=== PATIENT | male | born 1955 | race Caucasian/White ===

== ENCOUNTER → 2023-11-02 | Outpatient (CLI) | payer MEDICARE ==
--- NOTE | 2023-11-02 08:43 | CT ---
EXAMINATION TYPE: CT brain wo con DATE OF EXAM: 11/02/2023 COMPARISON: None INDICATION: Headache that hasn't resolved, visual disturbances DLP: 1212 mGycm, Automated exposure control for dose reduction was used. CONTRAST: None CT of the brain is performed utilizing 3 mm thick sections through the posterior fossa and 3 mm thick sections through the remaining calvarium. Study is performed within 24 hours of arrival to the hosp [place]. No abnormal hyperdensity is present to suggest an acute intracranial hemorrhage. No mass lesion is evident. No acute infarcts are evident. Ventricles and sulci are appropriate for the patient age. Paranasal sinuses and mastoid air cells within the [id number] are clear. IMPRESSION: 1. No acute intracranial process. Follow-up MRI can be performed as clinically indicated.
== END | disposition home or self-care (01) ==
LOC: RADCTMAIN 06:59
PROVIDERS: ATTEND Family Medicine
DX: H53.9 Unspecified visual disturbance (principal); R51.9 Headache, unspecified
CPT/HCPCS: 70450

== ENCOUNTER 2024-07-08 15:29 | Observation (INO) | payer MEDICARE ==
--- NOTE | 2024-07-08 15:56 | ED ---
General Adult HPI - General Chief complaint: Recheck/Abnormal Lab/Rx Stated complaint: chest pain Time Seen by Provider: 07/08/24 15:39 Source: patient, EMS, RN notes reviewed Mode of arrival: EMS Limitations: no limitations - History of Present Illness Initial comments: 68-year-old male presents emergency department via EMS chief complaint of dizziness, hypertension and mild chest comfort. Patient states started not feeling well he states he had a headache and when she checked his blood pressure was elevated he went over the fire valencia called his chief in which he said at that point he should come to the emergency department. Patient does have a history of [place] multiple stents hypertension hyperlipidemia no history of diabetes. Patient states he does not feel well. He states is also very stressed because his recently . - Related Data Allergies Allergy/AdvReac Type Severity Reaction Status Date / Time Sulfa (Sulfonamide AdvReac Unknown Verified 07/08/24 15:41 Antibiotics) Review of Systems ROS Statement: Those systems with pertinent positive or pertinent negative responses have been documented in the HPI. ROS Other: All systems not noted in ROS Statement are negative. Past Medical History Past Medical History: Hypertension, Myocardial Infarction ([place]) History of Any Multi-Drug Resistant Organisms: None Reported Past Surgical History: Orthopedic Surgery Additional Past Surgical History / Comment(s): [place] with stent placement 2011 Past Psychological History: No Psychological Hx Reported Smoking Status: Former smoker Past Alcohol Use History: None Reported Past Drug Use History: None Reported General Exam Limitations: no limitations General appearance: alert, in no apparent distress Head exam: Present: atraumatic, normocephalic, normal inspection Eye exam: Present: normal appearance, PERRL, EOMI. Absent: scleral icterus, conjunctival injection, periorbital swelling ENT exam: Present: normal exam, normal oropharynx, mucous membranes moist Neck exam: Present: normal inspection, full ROM. Absent: tenderness, meningismus, lymphadenopathy Respiratory exam: Present: normal lung sounds bilaterally. Absent: respiratory distress, wheezes, rales, rhonchi, stridor Cardiovascular Exam: Present: regular rate, normal rhythm, normal heart sounds. Absent: systolic murmur, diastolic murmur, rubs, gallop, clicks Course Vital Signs 07/08/24 15:36 Temperature 98.1 F Pulse Rate 66 Respiratory 18 Rate Blood Pressure 151/76 O2 Sat by Pulse 97 Oximetry EKG Findings - EKG Comments: EKG Findings:: 1515: 39 sinus bradycardia with a rate of 57 OK 179 QRS 138 QT/QTc 449/442 right bundle noted - EKG Results: EKG: interpreted by [facility] Medical Decision Making - Medical Decision Making Was pt. sent in by a medical professional or institution (, KEN, MEDICAL SUPERINTENDENT, urgent care, hospital, or alf...) When possible be specific @ -No Did you speak to anyone other than the patient for history (EMS, parent, family, police, friend...)? What history was obtained from this source @ -No Did you review nursing and triage notes (agree or disagree)? Why? @ -I reviewed and agree with nursing and triage notes Were old charts reviewed (outside hosp., previous admission, EMS record, old EKG, old radiological studies, urgent care reports/EKG's, alf records)? Report findings @ -No old charts were reviewed Differential Diagnosis (chest pain, altered mental status, abdominal pain women, abdominal pain men, vaginal bleeding, weakness, fever, dyspnea, syncope, headache, dizziness, GI bleed, back pain, seizure, CVA, palpatations, mental health, musculoskeletal)? @ -Differential Chest Pain: Stable Angina, Unstable Angina, STEMI, NSTEMI Aortic Dissection, Pneumothorax, Musculoskeletal, Esophageal Spasm GERD, Cholecystitis, Pancreatitis, Zoster, this is not meant to be an all-inclusive list. EKG interpreted by me (3pts min.). @ -As above X-rays interpreted by me (1pt min.). @ -Chest x-ray shows no acute cardiopulmonary process CT interpreted by me (1pt min.). @ -None done U/S interpreted by me (1pt. min.). @ -None done What testing was considered but not performed or refused? (CT, X-rays, U/S, labs)? Why? @ -None What meds were considered but not given or refused? Why? @ -None Did you discuss the management of the patient with other professionals (professionals i.e. , KEN, MEDICAL SUPERINTENDENT, lab, RT, psych nurse, hospital social worker, ski guide, teacher, civil preparedness training officer, case finishing machine adjuster)? Give summary @ -Dr. Duke for admission Was smoking cessation discussed for >3mins.? @ -No Was critical care preformed (if so, how long)? @ -No Were there social determinants of health that impacted care today? How? (Homelessness, low income, unemployed, alcoholism, drug addiction, transportation, low edu. Level, literacy, decrease access to med. care, assisted, rehab)? @ -No Was there de-escalation of care discussed even if they declined (Discuss DNR or withdrawal of care, Hospice)? DNR status @ -No What co-morbidities impacted this encounter? (DM, HTN, Smoking, COPD, CAD, Cancer, CVA, ARF, Chemo, Hep., AIDS, mental health diagnosis, sleep apnea, morbid obesity)? @ -CAD hypertension Was patient admitted / discharged? Hospital course, mention meds given and ro kashia, prescriptions, significant lab abnormalities, going to OR and other pertinent info. @ -[Admitted to observation for chest pain rule out initial troponin is negative patient has multiple risk factors mild headache chest pain and dizziness. Patient admitted with repeat cardiac enzymes Undiagnosed new problem with uncertain prognosis? @ -No Drug Therapy requiring intensive monitoring for toxicity (Heparin, Nitro, Insulin, Cardizem)? @ -No Were any procedures done? @ -No Diagnosis/symptom? @ -Chest pain Acute, or Chronic, or Acute on Chronic? @ -Acute Uncomplicated (without systemic symptoms) or Complicated (systemic symptoms)? @ -Complicated Side effects of treatment? @ -No Exacerbation, Progression, or Severe Exacerbation? @ -No Poses a threat to life or bodily function? How? (Chest pain, [place], [place], pneumonia, PE, COPD, DKA, ARF, appy, cholecystitis, CVA, Diverticulitis, Homicidal, Nina cidal, threat to staff... and all critical care pts) @ -Yes possible ACS risk the cardiac function - Lab Data Result diagrams: 07/08/24 15:49 07/08/24 15:49 Lab Results 07/08/24 07/08/24 07/08/24 Range/Units 15:49 15:49 15:49 WBC 8.0 (3.8-10.6) k/uL RBC 4.97 (4.30-5.90) m/uL Hgb 14.9 (13.0-17.5) gm/dL Hct 44.7 (39.0-53.0) % MCV 89.9 (80.0-100.0) fL MCH 30.1 (25.0-35.0) pg MCHC 33.5 (31.0-37.0) g/dL RDW 13.0 (11.5-15.5) % Plt Count 320 (150-450) k/uL MPV 7.4 Neutrophils % 55 % Lymphocytes % 33 % Monocytes % 7 % Eosinophils % 2 % Basophils % 1 % Neutrophils # 4.4 (1.3-7.7) k/uL Lymphocytes # 2.7 (1.0-4.8) k/uL Monocytes # 0.5 (0-1.0) k/uL Eosinophils # 0.2 (0-0.7) k/uL Basophils # 0.1 (0-0.2) k/uL PT 10.8 (10.0-12.5) sec INR 1.0 (<1.2) APTT 22.2 (22.0-30.0) sec Sodium 137 (137-145) mmol/L Potassium 3.8 (3.5-5.1) mmol/L Chloride 98 (98-107) mmol/L Carbon Dioxide 31 H (22-30) mmol/L Anion Gap 8 mmol/L BUN 12 (9-20) mg/dL Creatinine 0.95 (0.66-1.25) mg/dL Est GFR (CKD-EPI)AfAm >90 (>60 ml/min/1.73 sqM) Est GFR (CKD-EPI)NonAf 84 (>60 ml/min/1.73 sqM) Glucose 109 H (74-99) mg/dL Calcium 9.6 (8.4-10.2) mg/dL Magnesium 1.8 (1.6-2.3) mg/dL Total Bilirubin 0.4 (0.2-1.3) mg/dL AST 24 (17-59) U/L ALT 30 (4-49) U/L Alkaline Phosphatase 123 (38-126) U/L Troponin I (0.000-0.034) ng/mL Total Protein 7.0 (6.3-8.2) g/dL Albumin 4.2 (3.5-5.0) g/dL //24 Range/Units 15:49 WBC (3.8-10.6) k/uL RBC (4.30-5.90) m/uL Hgb (13.0-17.5) gm/dL Hct (39.0-53.0) % MCV (80.0-100.0) fL MCH (25.0-35.0) pg MCHC (31.0-37.0) g/dL RDW (11.5-15.5) % Plt Count (150-450) k/uL MPV Neutrophils % % Lymphocytes % % Monocytes % % Eosinophils % % Basophils % % Neutrophils # (1.3-7.7) k/uL Lymphocytes # (1.0-4.8) k/uL Monocytes # (0-1.0) k/uL Eosinophils # (0-0.7) k/uL Basophils # (0-0.2) k/uL PT (10.0-12.5) sec INR (<1.2) APTT (22.0-30.0) sec Sodium (137-145) mmol/L Potassium (3.5-5.1) mmol/L Chloride (98-107) mmol/L Carbon Dioxide (22-30) mmol/L Anion Gap mmol/L BUN (9-20) mg/dL Creatinine (0.66-1.25) mg/dL Est GFR (CKD-EPI)AfAm (>60 ml/min/1.73 sqM) Est GFR (CKD-EPI)NonAf (>60 ml/min/1.73 sqM) Glucose (74-99) mg/dL Calcium (8.4-10.2) mg/dL Magnesium (1.6-2.3) mg/dL Total Bilirubin (0.2-1.3) mg/dL AST (17-59) U/L ALT (4-49) U/L Alkaline Phosphatase (38-126) U/L Troponin I <0.012 (0.000-0.034) ng/mL Total Protein (6.3-8.2) g/dL Albumin (3.5-5.0) g/dL Disposition Clinical Impression: Chest pain Disposition: ADMITTED IP TO THIS HOSP Condition: Fair Referrals: Pio Ang MD [Primary Care Provider] - 1-2 days Time of Disposition: 17:04
[2024-07-08] MEDS: KETOROLAC 15 MG/ML 1 ML VIAL IVP STA (16:16)
[2024-07-08] MEDS: SODIUM CHLORIDE 0.9% 500 ML 500 ML IV ONE (16:16)
[2024-07-08 16:20] LABS: Basophils # (A) 0.1 k/uL (0-0.2); Basophils % (A) 1 %; Eosinophils # (A) 0.2 k/uL (0-0.7); Eosinophils % (A) 2 %; HCT 44.7 % (39.0-53.0); HGB 14.9 gm/dL (13.0-17.5); Lymphocytes # (A) 2.7 k/uL (1.0-4.8); Lymphocytes % (A) 33 %; MCH 30.1 pg (25.0-35.0); MCHC 33.5 g/dL (31.0-37.0); MCV 89.9 fL (80.0-100.0); Mean Platelet Volume 7.4; Monocytes # (A) 0.5 k/uL (0-1.0); Monocytes % (A) 7 %; Neutrophils # (A) 4.4 k/uL (1.3-7.7); Neutrophils % (A) 55 %; Platelet Count 320 k/uL (150-450); RBC 4.97 m/uL (4.30-5.90)
[2024-07-08] MEDS: ONDANSETRON 4 MG/2 ML VIAL IVP STA (16:20)
[2024-07-08 16:27] LABS: ALT 30 U/L (4-49); AST 24 U/L (17-59); African American GFR (CKD) >90 (>60 ml/min/1.73 sqM); Albumin 4.2 g/dL (3.5-5.0); Alkaline Phosphatase 123 U/L (38-126); Anion Gap 8 mmol/L; Blood Urea Nitrogen 12 mg/dL (9-20); Calcium 9.6 mg/dL (8.4-10.2); Carbon Dioxide 31 mmol/L (22-30); Chloride 98 mmol/L (98-107); Glucose 109 mg/dL (74-99); Magnesium 1.8 mg/dL (1.6-2.3); Non-African American GFR(CKD) 84 (>60 ml/min/1.73 sqM); Potassium 3.8 mmol/L (3.5-5.1); Sodium 137 mmol/L (137-145); Total Bilirubin 0.4 mg/dL (0.2-1.3)
[2024-07-08 16:35] LABS: Partial Thromboplastin Time 22.2 sec (22.0-30.0); Prothrombin Time 10.8 sec (10.0-12.5)
--- NOTE | 2024-07-08 16:37 | XR ---
EXAMINATION TYPE: XR chest 2V DATE OF EXAM: 07/08/2024 4:28 PM COMPARISON: None. CLINICAL INDICATION: Male, 68 years old with history of Chest Pain; [facility] TECHNIQUE: XR chest 2V Frontal and lateral views of the chest. FINDINGS: Lungs/Pleura: There is no evidence of pleural effusion, focal consolidation, or pneumothorax. Pulmonary vascularity: Unremarkable. Heart/mediastinum: Cardiomediastinal silhouette is unremarkable. Musculoskeletal: No acute osseous pathology. Other findings: None IMPRESSION: No acute cardiopulmonary disease/process. [facility], , 07/08/2024 4:35 PM
[2024-07-08] MEDS ORDERED: NITROGLYCERIN SL TABS 0.4 MG TAB SUBLINGUAL PRN (17:04)
[2024-07-08] MEDS: METOPROLOL TARTRATE 50 MG TAB PO SCH (21:00)
[2024-07-08] MEDS: ACETAMINOPHEN TAB 325 MG TAB PO PRN (21:00)
[2024-07-08] MEDS: ATORVASTATIN 40 MG TAB PO SCH (21:00)
[2024-07-08] MEDS: lisinopriL 20 MG TAB PO SCH (21:00)
[2024-07-09] MEDS: PANTOPRAZOLE 40 MG TABLET PO SCH (06:23)
[2024-07-09 07:57] VITALS: BP 122/71; PULSE 60; RESP 16; TEMP 97.8
[2024-07-09] MEDS: ASPIRIN 325 MG TAB PO SCH (09:25)
[2024-07-09] MEDS: METOPROLOL TARTRATE 25 MG TAB PO SCH (09:25)
[2024-07-09 09:28] LABS: Chol/HDL Ratio 4.11 Ratio; LDL Cholesterol,Calculated 62.7 mg/dL (0.0-131.0)
--- NOTE | 2024-07-09 10:07 | CONS ---
CONSULTATION CHIEF COMPLAINT: Headache. HISTORY OF PRESENT ILLNESS: This is a 68-year-old gentleman with history of coronary artery disease, status post prior angioplasty, who sees Dr. ANDREEA Vidal on a regular basis, comes to hospital primarily with headache and hypertension. 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 He is admitted with chest pain, but really he has vague sharp discomfort in the chest that is just lasting for fleeting seconds. At the time of my evaluation, he appears comfortable at rest and is free of cardiac symptoms. The patient's a week ago and of course he is in quite a bit of emotional distress and many of his symptoms are probably related to it. This morning his blood pressure is well controlled. Three sets of cardiac enzymes are negative and his EKG shows sinus rhythm with right bundle branch block and left anterior fascicular block. I do not have an old EKG to compare with. PAST MEDICAL HISTORY: Significant for hypertension, coronary artery disease, and dyslipidemia. MEDICATIONS: At home included: 1. Aspirin. 2. Zestril 20 q. daily. 3. Lopressor 50 b.i.d. 4. Lipitor 40 q. daily. 5. Prilosec. ALLERGIES: To sulfa. FAMILY HISTORY: Negative for premature coronary artery disease. SOCIAL HISTORY: Negative for current smoking, EtOH abuse, or drug abuse. REVIEW OF SYSTEMS: 14 out of 14 review of systems has been performed. Pertinents are as documented. PHYSICAL EXAMINATION: GENERAL: Afebrile. VITAL SIGNS: Heart rate is 60 beats per minute. Blood pressure is 122/71, respiratory rate is 18, O2 saturation is 98% on room air. NECK: There is no jugular venous distention. Carotid upstroke is normal. There is no bruit. CHEST: Reveals good air entry bilaterally. CARDIOVASCULAR: Heart exam reveals first and second heart sounds. No gallop. Has no murmur. ABDOMEN: Soft, nontender. EXTREMITIES: Did not reveal any edema. Peripheral pulses are felt. LABORATORY DATA: Labs show a hemoglobin of 14.9 and platelet count is 320. Potassium is 3.8, creatinine is 0.9. Three sets of troponins are negative. ASSESSMENT AND PLAN: 1. Atypical chest pain. 2. Headache. 3. Coronary artery disease, status post angioplasty. 4. Hypertension. PLAN: The patient is doing well. He is stable from cardiac standpoint, to be discharged home and arrange outpatient followup with Dr. Vidal and if necessary, he may undergo a stress test as outpatient. EVETTE / KYARA: [id number] /
--- NOTE | 2024-07-09 12:39 | P.HPIM ---
History of Present Illness Diagnoses: Possible atypical chest pain, completely resolved and cleared by cardiology for discharge Migraine headache which is improved now Uncontrolled high blood pressure, improved and currently better controlled Obesity with BMI of 33.5 Hospital course: This is a pleasant 68 years old male who presents initially because of high blood pressure and headache as patient telling me However he was admitted from the emergency room for atypical chest pain and he was already evaluated by manuscript editor and cleared her for discharge When I came to see the patient he was already dressed up ready to go home. He told me his headache has gone and he said he did not have any chest pain. However I told him with recommendation of the cardiology and for outpatient follow-up for possible stress test and he agrees Patient denies any other complaint, no new GI/ symptoms. No dizziness weakness numbness. Gait is fine He denies smoking alcohol or illicit drugs As per staff his has last week which might contributed. Lisinopril dose was increased 20 mg up to 30 mg by manuscript editor and prescription provided for him Problems and management plan were discussed with the patient and he verbalized understanding and acceptance Patient was found stable and can be discharged home in guarded prognosis however he needs follow-up as an outpatient. Patient was instructed to follow up with PCP within one week and patient agrees Physical exam Gen: patient is a AAOx3, no distress CVS: S1-S2, RRR, no murmur Lungs: B/L CTA, no wheezing Abdomen: soft, no distention, no tenderness, positive bowel sounds Extremity: no leg edema or induration Time spent more than 35 minutes Review of Systems Review of systems CONSTITUTIONAL: No fever, no malaise, no fatigue. HEENT: No recent visual problems or hearing problems. Denied any sore throat. CARDIOVASCULAR: No orthopnea, PND, no palpitations, no syncope. PULMONARY: No shortness of breath, no cough, no hemoptysis. GASTROINTESTINAL: No diarrhea, no nausea, no vomiting, no abdominal pain. Normoactive bowel sounds. NEUROLOGICAL: No headaches, no weakness, no numbness. HEMATOLOGICAL: Denies any bleeding or petechiae. GENITOURINARY: Denies any burning micturition, frequency, or urgency. MUSCULOSKELETAL/RHEUMATOLOGICAL: Denies any joint pain, swelling, or any muscle pain. ENDOCRINE: Denies any polyuria or polydipsia. Past Medical History Past Medical History: Hypertension, Myocardial Infarction ([place]) Additional Past Medical History / Comment(s): migraines Last Myocardial Infarction Date:: 2011 History of Any Multi-Drug Resistant Organisms: None Reported Past Surgical History: Heart Catheterization With Stent, Orthopedic Surgery Additional Past Surgical History / Comment(s): [place] with 3 stents placed February 17 2012 Past Anesthesia/Blood Transfusion Reactions: No Reported Reaction Date of Last Stent Placement:: February 17, 2012 Past Psychological History: No Psychological Hx Reported Smoking Status: Former smoker Past Alcohol Use History: None Reported Past Drug Use History: None Reported - Past Family History Mother Family Medical History: Diabetes Mellitus Father Family Medical History: Cancer, Myocardial Infarction ([place]) Additional Family Medical History / Comment(s): prostate cancer Medications and Allergies Home Medications Medication Instructions Recorded Confirmed Type Aspirin EC [Ecotrin Low Dose] 162 mg PO DAILY 07/08/24 07/08/24 History Atorvastatin [Lipitor] 40 mg PO HS 07/08/24 07/08/24 History Metoprolol Tartrate [Lopressor] 50 mg PO BID 07/08/24 07/08/24 History Omeprazole [PriLOSEC] 20 mg PO DAILY 07/08/24 07/08/24 History lisinopriL [Zestril] 30 mg PO HS #90 tab 07/09/24 Rx Allergies Allergy/AdvReac Type Severity Reaction Status Date / Time Sulfa (Sulfonamide AdvReac Unknown Verified 07/08/24 15:41 Antibiotics) Physical Exam Vitals: Vital Signs Temp Pulse Pulse Resp BP BP Pulse Ox 07/09/24 07:30 97.8 F 60 16 122/71 98 07/09/24 01:53 97.7 F 67 17 105/60 95 07/08/24 20:19 72 16 149/74 99 07/08/24 19:24 78 18 135/82 95 07/08/24 17:46 80 18 153/82 98 07/08/24 15:36 98.1 F 66 18 151/76 97 Intake and Output 07/08/24 07/09/24 07/09/24 22:59 06:59 14:59 Intake Total 120 Balance 120 Intake: Oral 120 Other: Voiding Method Toilet Toilet # Voids 1 3 Weight 99.79 kg GENERAL: The patient is alert and oriented x3, not in any acute distress. Well developed, well nourished. HEENT: Pupils are round and equally reacting to light. EOMI. No scleral icterus. No conjunctival pallor. Normocephalic, atraumatic. No pharyngeal erythema. No thyromegaly. CARDIOVASCULAR: S1 and S2 present. No murmurs, rubs, or gallops. PULMONARY: Chest is clear to auscultation, no wheezing , no crackles. ABDOMEN: Soft, nontender, nondistended, normoactive bowel sounds. No palpable organomegaly. MUSCULOSKELETAL: No joint swelling or deformity. EXTREMITIES: No cyanosis, clubbing, or pedal edema. NEUROLOGICAL: Gross neurological examination did not reveal any focal deficits. SKIN: No rashes. no petechiae. Results CBC & Chem 7: 07/08/24 15:49 07/08/24 15:49 Labs: Abnormal Lab Results - Last 24 Hours (Table) 07/08/24 07/08/24 Range/Units 15:49 15:49 Carbon Dioxide 31 H (22-30) mmol/L Glucose 109 H (74-99) mg/dL Triglycerides 269.00 H (0.00-149.00) mg/dL VLDL Cholesterol, Calc 53.80 H (5.00-40.00) mg/dL HDL Cholesterol 37.50 L (40.00-60.00) mg/dL Thrombosis Risk Factor Assmnt - Choose All That Apply Each Factor Represents 1 point: Obesity (BMI >25) Each Risk Factor Represents 2 Points: Age 61-74 years Thrombosis Risk Factor Assessment Total Risk Factor Score: 3 Thrombosis Risk Factor Assessment Level: Moderate Risk
[2024-07-09] MEDS ORDERED: lisinopriL 10 MG TAB PO SCH (21:00)
== END 2024-07-09 13:06 | disposition home or self-care (01) ==
LOC: EC 15:29 → 6NMEDSUR 17:07
PROVIDERS: ADMIT Hospitalist; ATTEND Hospitalist
DX: R07.89 Other chest pain (principal); G43.909 Migraine, unspecified, not intractable, without status migrainosus; I10 Essential (primary) hypertension; E78.5 Hyperlipidemia, unspecified; Z63.4 Disappearance and death of family member; I25.10 Atherosclerotic heart disease of native coronary artery without angina pectoris; I45.2 Bifascicular block; E66.9 Obesity, unspecified; Z68.33 Body mass index [BMI] 33.0-33.9, adult; I25.2 Old myocardial infarction; Z79.82 Long term (current) use of aspirin; Z79.899 Other long term (current) drug therapy; Z88.2 Allergy status to sulfonamides; Z95.5 Presence of coronary angioplasty implant and graft; Z87.891 Personal history of nicotine dependence
CPT/HCPCS: 96361; 96374; 96375; 99285; 36415; 93005 ×2; 80061; 80053; 83735; 84484; 85025; 85610; 85730; 71046; G0378 ×2; J2405; J1885